=== PATIENT | male | born 1970 | race Caucasian/White ===

== ENCOUNTER 2022-05-30 12:30 | Outpatient (CLI) | payer OTHER, SELFPAY ==
[2022-05-30 18:29] LABS: Basophils Percent Auto 0.5 % (0.2-1.2); Eosinophils Absolute Auto 0.1 K/mm3 (0-0.3); Eosinophils Percent Auto 2.5 % (0-4.4); Hematocrit 48.7 % (42.0-52.0); Hemoglobin 16.2 g/dL (14.0-18.0); Immature Granulocyte Absolute 0.01 K/mm3 (0.00-0.031); Immature Granulocyte Percent A 0.2 % (0-0.5); Lymphocytes Absolute Auto 1.16 K/mm3 (0.9-3.2); Lymphocytes Percent Auto 20.6 % (18.3-44.2); Mean Corpuscular HGB Conc 33.3 g/dl (32-36); Mean Corpuscular Hemoglobin 29.3 pg (26-34); Mean Corpuscular Volume 88.1 fl (80-100); Mean Platelet Volume 10.4 fl (7.4-10.4); Monocytes Absolute Auto 0.6 K/mm3 (0.1-0.6); Monocytes Percent Auto 10.3 % (2.6-8.5); Neutrophils Absolute Auto 3.7 K/mm3 (1.3-6.7); Neutrophils Percent Auto 65.9 % (45.5-73.1); Platelet Count Result 265 k/mm3 (150-375); Red Blood Count 5.53 M/mm3 (4.6-6.20); Red Cell Distribution Width 13.2 % (11.5-14.5); White Blood Count 5.6 K/mm3 (4.5-10.0)
[2022-05-30 18:54] LABS: Alanine Aminotransferase 63 U/L (6-50); Albumin Level 4.7 g/dL (3.5-5.1); Alkaline Phosphatase 61 U/L (38-126); Anion Gap 11 mmol/L (8-16); Aspartate Amino Transferase 64 U/L (17-59); Bilirubin,Total 0.6 mg/dL (0.2-1.3); Blood Urea Nitrogen 12 mg/dL (9-20); Calcium 9.6 mg/dL (8.4-10.2); Carbon Dioxide 25 mmol/L (22-30); Chloride 101 mmol/L (98-107); Cholesterol 152 mg/dL (0-200); Estimated Glomerular Filt Rate > 60; Glucose 80 mg/dL (65-110); HDL Direct 47 mg/dL; Potassium 3.9 mmol/L (3.4-5.0); Sodium 137 mmol/L (137-145); Triglycerides 146 mg/dL (<150)
[2022-05-30 19:04] LABS: LDL Cholesterol Direct 86 mg/dL
[2022-05-30 19:23] LABS: Prostate Specific Antigen 0.7 ng/mL (< OR = 4.0)
[2022-06-01 08:17] LABS: PCP NEGATIVE ng/mL (<25)
[2022-06-08 13:14] LABS: Amphetamines NEGATIVE; Marijuana Metabolites NEGATIVE
[2022-06-08 13:15] LABS: Barbiturates NEGATIVE; Benzodiazepines POSITIVE
[2022-06-08 13:26] LABS: Cocaine Metabolites NEGATIVE
== END 2022-05-30 12:31 | disposition home or self-care (01) ==
LOC: ANHGOSHLAB 12:32
PROVIDERS: PCP Internal Medicine; Visit Provider Nurse Practitioner
DX: E78.2 Mixed hyperlipidemia (principal); F41.9 Anxiety disorder, unspecified; Z12.5 Encounter for screening for malignant neoplasm of prostate; Z13.29 Encounter for screening for other suspected endocrine disorder
CPT/HCPCS: 36415; 80053; 80061; 80307; 84153; 85025; G0103

== ENCOUNTER → 2022-06-11 09:32 | Outpatient (CLI) | payer OTHER, SELFPAY ==
--- NOTE | ~2022-06-11 | US_ITS ---
US scrotum doppler INDICATION: TECHNIQUE: Testicular sonogram utilizing grayscale and color Doppler FINDINGS: The testes are normal in size and appearance. No focal lesions are seen. The right testes measures 4.8 x 2.2 x 3.4 cm centimeters, and the left testis measures 5 x 2.3 x 2.8 cm cm. There is n ormal vascular flow to both testes. There are bilateral epididymal cysts. There is a left varicocele. There are small bilateral hydroceles. IMPRESSION: 1. Left varicocele. 2: Small bilateral hydroceles. 3: Bilateral epididymal cysts. Reviewed, dictated and finalized at location B.
== END ==
PROVIDERS: PCP Nurse Practitioner; Visit Provider Nurse Practitioner
DX: N50.89 Other specified disorders of the male genital organs (principal); I86.1 Scrotal varices; N43.3 Hydrocele, unspecified; N50.3 Cyst of epididymis
CPT/HCPCS: 76870; 93976

== ENCOUNTER 2022-07-23 07:50 | Outpatient (CLI) | payer OTHER, SELFPAY | END 2022-07-23 07:51 | disposition home or self-care (01) | LOC: ANHAUDASC 07:51 | PROVIDERS: PCP Nurse Practitioner; Visit Provider Nurse Practitioner | DX: H93.13 Tinnitus, bilateral (principal); H90.3 Sensorineural hearing loss, bilateral | CPT/HCPCS: 92557; 92567 ==

== ENCOUNTER 2022-12-25 11:24 | Emergency (ER) | payer OTHER, SELFPAY ==
--- NOTE | 2022-12-25 11:29 | ED.URI ---
HPI - URI/Sore Throat General Chief Complaint: Upper Respiratory Infection Stated Complaint: sore throat,sinus pain/drainage,cough Time Seen by Provider: 12/25/22 11:55 Source: patient and RN notes reviewed Mode of arrival: ambulatory Limitations: no limitations History of Present Illness HPI Narrative: 52-year-old male presents with concern for 9 day history of sinus congestion, sinus pain, drainage, cough, chest congestion. Reports he has been taking Mucinex with nighttime relief. Denies fever, aches, chills, sweats MD elicited complaint: cough and nasal congestion Related Data Allergies Allergy/AdvReac Type Severity Reaction Status Date / Time levofloxacin Allergy Unknown Hives Verified 12/25/22 11:33 Review of Systems Review of Systems: CONSTITUTIONAL: Denies malaise, chills, sweats, or fever. EYES: Denies visual changes, redness, or discharge. ENT: Reports rhinorrhea, congestion, sinus pain, and sore throat. CARDIOVASCULAR: Denies chest pain, palpitations, or edema. RESPIRATORY: Reports cough. Denies dyspnea. GASTROINTESTINAL: Denies abdominal pain, nausea, vomiting, diarrhea SKIN: Denies rash or itching. MUSCULOSKELETAL: Denies myalgia. NEUROLOGIC: Denies headache. All systems reviewed & are unremarkable except as noted in HPI and below PMFSH Past Medical History Medical History Anxiety Depression HLD (hyperlipidemia) Hypercholesterolemia Insomnia Surgical History Surgical History History of vasectomy Family History Family History Father Malignant neoplasm of prostate Social History Social History Smoking status: Never smoker Alcohol intake: current Alcohol use details: occasional Substance use: never Lack of Transportation: No Lack of Food: Never True Current Housing: I Have Housing Concerned About Future Housing: No Difficulty Paying Gas/Electric Bills: No Difficulty Paying for Meds: No Currently Unemployed: No Education: Master's Degree or Higher Difficulty w/ Childcare or Family Care: No Comments At time of signature, agree with nursing past medical, surgical, social and family history. There is no relevant family history pertinent to the presenting complaint Exam Narrative: GENERAL: Well-appearing, well-nourished, and in no acute distress. HEAD: Normocephalic EYES: PERRLA, conjunctivae clear ENT: Nares clear, turbinates edematous and erythematous, clear discharge. Mucous membranes moist. TM pearly العلي with dull light reflex bilaterally; no tragal tenderness. Oropharynx not erythematous without lesions. Tonsils not enlarged and without exudate, no drooling, no hoarseness, no trismus, uvula midline. NECK: Supple. No lymphadenopathy CHEST: Clear to auscultation, breath sounds equal. No wheezing, rhonchi, rales, or stridor. No respiratory distress, speaks in full sentences. HEART: Regular rate and rhythm. No murmur heard. SKIN: Warm, dry, no rash. NEURO: Alert and oriented x3. PSYCH: Normal mood and affect Course Course Emergency Course: Patient is aware of diagnosis, understands and agrees to treatment plan. Anticipatory guidance given. Patient agrees to follow-up as directed and is aware of reasons to seek care at the emergency department. Portions of this record may have been created with voice recognition software Level of Care: Express Care Visit Vital Signs Vital signs: Reviewed. MDM - URI/Sore Throat MDM Narrative Medical decision making narrative: Differential diagnosis considered: Ruano virus, strep pharyngitis, allergic rhinitis, upper respiratory tract infection, sinusitis, rhinosinusitis, nasopharyngitis. viral pharyngitis, otitis media, otitis externa, pneumonia, bronchitis, viral cough syndrome, viral syndrome, and influenza. Ex
[2022-12-25 11:34] VITALS: BP 149/89; PULSE 88; RESP 16; TEMP 36.6; O2SAT 99
== END 2022-12-25 12:07 | disposition home or self-care (01) ==
PROVIDERS: Emergency Provider Nurse Practitioner; PCP Internal Medicine
DX: J32.9 Chronic sinusitis, unspecified (principal); J40 Bronchitis, not specified as acute or chronic; E78.5 Hyperlipidemia, unspecified; E78.00 Pure hypercholesterolemia, unspecified; Z98.52 Vasectomy status; F41.9 Anxiety disorder, unspecified; F32.A Depression, unspecified
CPT/HCPCS: 99213; G0463

== ENCOUNTER 2023-05-15 15:08 | Outpatient (NON) | payer OTHER, SELFPAY ==
[2023-05-15 18:51] LABS: Appearance Urine Clear (Clear); Bilirubin Urine Negative (Negative); Blood Urine Negative (Negative); Color Urine Yellow (Yellow); Glucose Urine UA Negative (Negative); Ketones Urine Negative (Negative); Leukocyte Esterase Ur Negative LEU/UL (Negative); Nitrate Urine Negative (Negative); Protein Urine Negative (Negative); Specific Grav Ur 1.012 (1.001-1.035); Urobilinogen Urine 0.2 mg/dL (<2.0); pH Urine 5.5 (5.0-9.0)
[2023-05-15 18:54] LABS: Add Urine Microscopic? NO
== END 2023-05-15 15:09 | disposition home or self-care (01) ==
LOC: ANHGOSHLAB 15:09
PROVIDERS: PCP Internal Medicine; Visit Provider Nurse Practitioner
DX: R39.9 Unspecified symptoms and signs involving the genitourinary system (principal); R30.0 Dysuria
CPT/HCPCS: 81003

== ENCOUNTER 2023-07-23 09:11 | Outpatient (CLI) | payer OTHER, SELFPAY ==
[2023-07-23 19:47] LABS: Basophils Percent Auto 0.8 % (0.2-1.2); Eosinophils Absolute Auto 0.2 K/mm3 (0-0.3); Eosinophils Percent Auto 3.1 % (0-4.4); Hematocrit 47.4 % (42.0-52.0); Hemoglobin 15.6 g/dL (14.0-18.0); Immature Granulocyte Absolute 0.01 K/mm3 (0.00-0.031); Immature Granulocyte Percent A 0.2 % (0-0.5); Lymphocytes Absolute Auto 0.96 K/mm3 (0.9-3.2); Lymphocytes Percent Auto 19.9 % (18.3-44.2); Mean Corpuscular HGB Conc 32.9 g/dl (32-36); Mean Corpuscular Hemoglobin 29.1 pg (26-34); Mean Corpuscular Volume 88.4 fl (80-100); Mean Platelet Volume 10.2 fl (7.4-10.4); Monocytes Absolute Auto 0.5 K/mm3 (0.1-0.6); Monocytes Percent Auto 9.5 % (2.6-8.5); Neutrophils Absolute Auto 3.2 K/mm3 (1.3-6.7); Neutrophils Percent Auto 66.5 % (45.5-73.1); Platelet Count Result 267 k/mm3 (150-375); Red Blood Count 5.36 M/mm3 (4.6-6.20); Red Cell Distribution Width 13.2 % (11.5-14.5); White Blood Count 4.8 K/mm3 (4.5-10.0)
[2023-07-23 19:56] LABS: Alanine Aminotransferase 57 U/L (6-50); Albumin Level 4.5 g/dL (3.5-5.1); Alkaline Phosphatase 51 U/L (38-126); Anion Gap 8 mmol/L (8-16); Aspartate Amino Transferase 40 U/L (17-59); Bilirubin,Total 0.6 mg/dL (0.2-1.3); Blood Urea Nitrogen 15 mg/dL (9-20); Calcium 9.5 mg/dL (8.4-10.2); Carbon Dioxide 24 mmol/L (22-30); Chloride 106 mmol/L (98-107); Cholesterol 178 mg/dL (0-200); Estimated Glomerular Filt Rate > 60; Glucose 105 mg/dL (65-110); HDL Direct 41 mg/dL; Potassium 4.1 mmol/L (3.4-5.0); Sodium 138 mmol/L (137-145); Triglycerides 199 mg/dL (<150)
[2023-07-23 20:12] LABS: LDL Cholesterol Direct 102 mg/dL
[2023-07-23 20:31] LABS: Vitamin D 25 Hydroxy 23.1 ng/mL
[2023-07-23 20:36] LABS: Prostate Specific Antigen 0.9 ng/mL (< OR = 4.0)
[2023-07-25 20:23] LABS: Apolipoprotein B 92 mg/dL (<90)
[2023-07-26 13:33] LABS: Testosterone Free 93.2 pg/mL (35.0-155.0); Testosterone Total 459 ng/dL (250-1100)
== END 2023-07-23 09:12 | disposition home or self-care (01) ==
LOC: ANHGOSHLAB 09:13
PROVIDERS: PCP Internal Medicine; Visit Provider Clinical Nurse Specialist
DX: E78.5 Hyperlipidemia, unspecified (principal); I10 Essential (primary) hypertension; R53.83 Other fatigue; E55.9 Vitamin D deficiency, unspecified; Z12.5 Encounter for screening for malignant neoplasm of prostate; Z13.29 Encounter for screening for other suspected endocrine disorder
CPT/HCPCS: 36415; 80053; 80061; 82172; 82306; 84153; 84402; 84403; 84443; 85025; G0103

== ENCOUNTER 2023-08-09 13:10 | Outpatient (RCR) | payer OTHER, SELFPAY ==
--- NOTE | 2023-08-09 14:36 | PTOPEVAL1 ---
Assessment and note entered by Urszula Johnson, PT, DPT Evaluation Information Assessment Status Evaluation Diagnosis lumbar radiculopathy Onset chronic Subjective Information Pt states he has an annoying pain that runs down the back and side of his L hip down to his knee. He states this has been a nagging pain for the last couple of years. He reports a random numbness or tingling that goes down his leg. He reports recently he feels like he can feel his pulse in the front of his R hip. Pt has a hybrid desk and walking job. Reported Pain Level Pain Score 0: Self Report Assessment PT Clinical Summary Alfredito presents to therapy today for his initial evaluation today with a diagnosis of lumbar radiculopathy. Today he demonstrates tenderness to palpation and muscle tightness in his L piriformis compared to his R. He demonstrates good LE strength and equal pelvic alignment. He was issued an HEP to mobility his piriformis and to improve LE mobility. He would like to try this program on his own for a month and plans to follow up in a month. Plan of Care Interventions Electrical Stimulation,Gait Training,Hot Pack/Cold Pack,Manual Therapy,Neuro Re-education,Patient/ Caregiver Educati,Therapeutic Activities, Therapeutic Exercise PT Services Indicated Yes Treatment Frequency and follow up in 1 month Duration These treatments will address the objective and functional deficits as defined above. The patient will be advanced safely and appropriately in order for the patient to progress towards his/her prior level of function. Additional exercises will be introduced and as well as a comprehensive home exercise program upon discharge, if needed, ?to ensure carryover of functional gains achieved in the clinic. This treatment plan has been reviewed and agreement upon by the patient.
--- NOTE | 2023-09-06 08:36 | PTOPDC ---
Assessment and note entered by Urszula Johnson, PT, DPT Evaluation Information Assessment Status Discharge - Pt Not Presen Diagnosis lumbar radiculopathy Onset chronic Subjective Information Pt did not show up to scheduled re-evaluation this date. Called to follow up. Pt states he forgot but is doing well and does not need to reschedule. Assessment PT Clinical Summary Pt was evaluated on 08/09/23 and did not complete any subsequent treatments.
== END 2023-09-06 08:52 | disposition home or self-care (01) ==
LOC: ANHGOSHPT 13:10
PROVIDERS: PCP Internal Medicine; Visit Provider Clinical Nurse Specialist
DX: M54.16 Radiculopathy, lumbar region (principal)
CPT/HCPCS: 97110; 97161; 99199

== ENCOUNTER 2023-10-17 16:55 | Emergency (ER) | payer OTHER, SELFPAY ==
--- NOTE | 2023-10-17 17:14 | ED.URI ---
HPI - URI/Sore Throat General Chief Complaint: Upper Respiratory Infection Stated Complaint: SORE THROAT/SINUS PRESSURE/FLU A EXPOSURE Source: patient, RN notes reviewed and old records reviewed Mode of arrival: ambulatory Limitations: no limitations History of Present Illness HPI Narrative: 53-year-old male presents to the [facility] with complaints of sore throat, sinus pressure, body aches and exposure to flu a last weekend. Symptoms started when he woke up this morning. No treatment prior to arrival Did not receive his flu shot this year Related Data Allergies Allergy/AdvReac Type Severity Reaction Status Date / Time levofloxacin Allergy Unknown Hives Verified 10/17/23 17:11 Review of Systems Review of Systems: All systems reviewed & are unremarkable except as noted in HPI and below Constitutional: Constitutional: Reports as per HPI and Reports body ache(s) Eyes: Eyes: Reports no additional eye complaints ENT: Reports as per HPI Cardiovascular: Cardiovascular: Reports no additional cardiovascular complaints, Denies chest pain and Denies dyspnea Respiratory: Respiratory: Reports no additional respiratory complaints, Denies chest congestion, Denies cough and Denies dyspnea Gastrointestinal: Gastrointestinal: Reports no additional gastrointestinal complaints, Denies abdominal pain, Denies nausea and Denies vomiting Musculoskeletal: Musculoskeletal: Reports no additional musculoskeletal complaints Integumentary/Breasts: Skin/Breast: Reports system reviewed and no additional complaints, except as docu Neurologic: Reports system reviewed and no additional complaints, except as documented Psychiatric: Psychiatric: Reports no additional psychiatric complaints Allergic/Immunologic: Allergic/Immunologic: Reports no additional allergic/immunologic complaints PMFSH Past Medical History Medical History Anxiety Depression HLD (hyperlipidemia) Hypercholesterolemia Insomnia Surgical History Surgical History History of vasectomy Family History Family History Father Malignant neoplasm of prostate Social History Social History Smoking status: Never smoker Alcohol intake: current Alcohol use details: occasional Substance use: never Substance use type: does not use Lack of Transportation: No Lack of Food: Never True Current Housing: I Have Housing Concerned About Future Housing: No Difficulty Paying Gas/Electric Bills: No Difficulty Paying for Meds: No Currently Unemployed: No Education: Master's Degree or Higher Difficulty w/ Childcare or Family Care: No Living arrangements: alone Occupation/Education: occupation Gender identity (if verbalized by the patient): Male Agree to blood products: Yes Comments At the time of my signature, I reviewed and agree with the nursing past medical, surgical, social, and family history. There is no relevant family history pertinent to the patient complaint. Exam Const: General: cooperative, healthy appearing, comfortable, no acute distress, well developed, alert and well nourished Nutritional Appearance: well nourished Orientation/consciousness: patient oriented x3 Limitations: no limitations HENMT: Head: normal to inspection Ears: hearing grossly normal bilaterally, external ears normal, TM's normal bilaterally, EAC's normal, mastoids normal and no periauricular adenopathy Face/Nose/Sinus: Normal external nose present, Normal nares present, Normal nasal mucous membranes and turbinates present, normal facial exam and face symmetric Face and sinus: normal facial exam and face symmetric Mouth: Yes Normal oral and palatal mucosa present, Yes lip normal and Yes moist mucous membranes Throat: posterior oropharynx normal, tonsils no
[2023-10-17 17:15] VITALS: BP 134/94; PULSE 93; RESP 16; TEMP 36.1; O2SAT 99
== END 2023-10-17 17:39 | disposition home or self-care (01) ==
PROVIDERS: Emergency Provider Nurse Practitioner; PCP Internal Medicine
DX: J11.1 Influenza due to unidentified influenza virus with other respiratory manifestations (principal); Z20.822 Contact with and (suspected) exposure to COVID-19; E78.5 Hyperlipidemia, unspecified; E78.00 Pure hypercholesterolemia, unspecified; Z98.52 Vasectomy status; F41.9 Anxiety disorder, unspecified
CPT/HCPCS: 87426; 87804; 99213; G0463

== ENCOUNTER 2024-03-10 10:28 | Day surgery (SDC) | payer OTHER, SELFPAY ==
[2024-03-04 06:07] VITALS: BMI 30.9
[2024-03-04 12:08] VITALS: BMI 30.7
--- NOTE | 2024-03-09 07:34 | P.PNAN_ITS ---
Anes - Initial Pre Proc Eval Procedure: Operation Date: 03/10/24 13:00 Proposed Procedures p Diagnostic Colonoscopy - David Cohen MD Date/Time: 03/09/24 07:34 Surgeon: David Cohen MD Pre Op Diagnosis: Personal HX of colonic polyps Patient Data Age: 54 Gender: M Height: 1.8 m Weight: 100 kg Allergies Allergy/AdvReac Type Severity Reaction Status Date / Time levofloxacin Allergy Unknown Hives Verified 03/10/24 11:37 Home Medications Medication Instructions Recorded Confirmed Type sildenafil 50 mg tablet 50 mg PO DAILY PRN sexual activity 07/23/23 03/10/24 Rx #30 tabs alprazolam 0.5 mg tablet 0.5 mg PO DAILY PRN anxiety #30 12/09/23 03/10/24 Rx tabs atenolol 25 mg tablet 25 mg PO DAILY #90 tabs 12/26/23 03/10/24 Rx sertraline 50 mg tablet 50 mg PO DAILY #90 tabs 01/27/24 03/10/24 Rx rosuvastatin 20 mg tablet 20 mg PO DAILY #90 tabs 03/02/24 03/10/24 Rx doxepin 10 mg capsule 10 mg PO DAILY 03/10/24 03/10/24 History Patient hx anesthesia problems: none Family hx anesthesia problems: none Results Review: All pre-operative results and documents have been reviewed as part of the pre- operative evaluation. [facility] Past Medical History Medical History (Updated 03/10/24 @ 06:53 by Toñito Austin DO) Anxiety Depression HLD (hyperlipidemia) Hypercholesterolemia Hypertension Insomnia Surgical History Surgical History History of vasectomy Family History Family History Father Malignant neoplasm of prostate Social History Social History Smoking status: Never smoker Alcohol intake: current Drinks per week: 1 Alcohol use details: occasional Substance use: never Substance use type: does not use Do You Feel Safe in your Home?: Yes Lack of Transportation: No Lack of Food: Never True Current Housing: I Have Housing Concerned About Future Housing: No Difficulty Paying Gas/Electric Bills: No Difficulty Paying for Meds: No Currently Unemployed: No Education: Master's Degree or Higher Difficulty w/ Childcare or Family Care: No Living arrangements: alone Occupation/Education: occupation Gender identity (if verbalized by the patient): Male Spiritual care concerns: No Agree to blood products: Yes Anes - Eval Final PreProcedure Day of Procedure 03/09/24 07:34 Patient weight: obese Heart: regular rate and rhythm Lungs: clear to auscultation Airway: Mallampati scale class III Neurological: alert and oriented Last oral intake: >/= 8 hours ASA classification: III Emergent: no Anesthetic plan: proceed Anesthesia type and monitoring: general GIVS and standard monitoring Results Review: All pre-operative results and documents have been reviewed as part of the pre- operative evaluation. Informed Consent: The patient's anesthetic plan and its attendant risks and benefits were discussed with the patient/family/POA. Questions were solicited and answers provided to the satisfaction of the patient/family/POA.
--- NOTE | 2024-03-10 07:17 | P.HP_ITS ---
History of Present Illness History of Present Illness Consent: Risks, benefits, and alternatives have been discussed and questions answered. Patient agrees to proceed with procedure. Chief complaint: Personal HX of colonic polyps Narrative: Alfredito Cage is a 54 year old male Who is referred for colonoscopy. He has a history of having a polyp removed about 9 years ago. Review of Systems Review of Systems: All systems reviewed & are unremarkable except as noted in HPI and below PMFSH Past Medical History Medical History Anxiety Depression HLD (hyperlipidemia) Hypercholesterolemia Hypertension Insomnia Surgical History Surgical History History of vasectomy Family History Family History Father Malignant neoplasm of prostate Social History Social History Smoking status: Never smoker Alcohol intake: current Drinks per week: 1 Alcohol use details: occasional Substance use: never Substance use type: does not use Do You Feel Safe in your Home?: Yes Lack of Transportation: No Lack of Food: Never True Current Housing: I Have Housing Concerned About Future Housing: No Difficulty Paying Gas/Electric Bills: No Difficulty Paying for Meds: No Currently Unemployed: No Education: Master's Degree or Higher Difficulty w/ Childcare or Family Care: No Living arrangements: alone Occupation/Education: occupation Gender identity (if verbalized by the patient): Male Spiritual care concerns: No Agree to blood products: Yes Meds Home Medications and Allergies Home Medications Medication Instructions Recorded Confirmed Type sildenafil 50 mg tablet 50 mg PO DAILY PRN sexual activity 07/23/23 03/10/24 Rx #30 tabs alprazolam 0.5 mg tablet 0.5 mg PO DAILY PRN anxiety #30 12/09/23 03/10/24 Rx tabs atenolol 25 mg tablet 25 mg PO DAILY #90 tabs 12/26/23 03/10/24 Rx sertraline 50 mg tablet 50 mg PO DAILY #90 tabs 01/27/24 03/10/24 Rx rosuvastatin 20 mg tablet 20 mg PO DAILY #90 tabs 03/02/24 03/10/24 Rx doxepin 10 mg capsule 10 mg PO DAILY 03/10/24 03/10/24 History Allergies Allergy/AdvReac Type Severity Reaction Status Date / Time levofloxacin Allergy Unknown Hives Verified 03/10/24 11:37 Exam Resp: Auscultation: clear to auscultation bilaterally Cardio: Rate: regular rate Rhythm: regular rhythm GI: GI Palp: Yes Soft to palpation and No Tenderness to palpation present (GI) Assessment and Plan Assessment and plan (1) Screening for colon cancer: Code(s): Z12.11 - Encounter for screening for malignant neoplasm of colon Status: Acute Assessment and Plan: Colonoscopy with possible biopsy or polypectomy or cautery or injection of subs tances.
[2024-03-10 11:38] VITALS: BP 131/83; PULSE 78; RESP 18; TEMP 36.4; O2SAT 97
[2024-03-10] MEDS: LACTATED RINGERS 1,000 ML 150 ML IV CONT (11:44)
[2024-03-10] MEDS: SIMETHICONE ORAL SUSPENSION 20 MG/0.3 ML 30 ML BOTTLE 0.6 ML IRRIGATION (13:09)
[2024-03-10 13:15] VITALS: BP 89/55; PULSE 68; RESP 16; O2SAT 93
[2024-03-10 13:25] VITALS: BP 96/66; PULSE 67; RESP 16; O2SAT 97
[2024-03-10 13:35] VITALS: BP 108/72; PULSE 70; RESP 18; O2SAT 96
--- NOTE | 2024-03-10 13:44 | WPDANESPN ---
Anes - Prog Note Post-Op Date/Time: 03/10/24 13:44 Cardiovascular status: normal Respiratory status: normal Airway patency: baseline Mental status: baseline Post-Op hydration status: normal Vital Signs: Last Vital Signs Temp 36.4 C 03/10/24 11:38 Pulse 78 03/10/24 11:38 Resp 18 03/10/24 11:38 BP 131/83 03/10/24 11:38 Pulse Ox 97 03/10/24 11:38 O2 Del Method Room Air 03/10/24 11:38 Pain Score (VAS): 0 I/O: Intake & Output 03/09/24 03/10/24 03/10/24 23:59 07:59 15:59 Intake Total 400 Balance 400 Post-procedural complaints: none Patient Feedback: Patient satisfied with anesthetic care. Other Findings: Patient vital signs back to baseline. Patient denies nausea and vomiting. Patient's pain under control. Patient OK for discharge.
== END 2024-03-10 14:03 | disposition home or self-care (01) ==
PROVIDERS: PCP Internal Medicine; Visit Provider Internal Medicine Gastroenterology
PROC: 0DJD8ZZ Inspection of Lower Intestinal Tract, Via Natural or Artificial Opening Endoscopic (ICD-10-PCS; CPT 45378; principal; 2024-03-10 13:00)
DX: Z12.11 Encounter for screening for malignant neoplasm of colon (principal); Z86.010 Personal history of colon polyps
CPT/HCPCS: 45378

== ENCOUNTER 2024-05-23 11:19 | Emergency (ER) | payer OTHER, SELFPAY ==
--- NOTE | 2024-05-23 12:14 | ED.URI ---
HPI - URI/Sore Throat General Chief Complaint: Upper Respiratory Infection Stated Complaint: COUGH/CHEST CONGESTION/HEADACHE/SINUS PRESSURE Time Seen by Provider: 05/23/24 12:14 Source: patient, RN notes reviewed and old records reviewed Mode of arrival: ambulatory Limitations: no limitations History of Present Illness HPI Narrative: 54-year-old male presents to the [facility] with cough, congestion, headaches, sinus pressure that started 1 week ago. States that his symptoms got much worse today Was seen, Medrol Dosepak called in on May 17 Denies any other treatment prior to arrival Related Data Home Medications Medication Instructions Recorded Confirmed doxepin 10 mg capsule 10 mg PO QHS PRN Anxiety 04/08/24 05/23/24 Allergies Allergy/AdvReac Type Severity Reaction Status Date / Time levofloxacin Allergy Unknown Hives Verified 05/23/24 11:45 Review of Systems Review of Systems: All systems reviewed & are unremarkable except as noted in HPI and below Constitutional: Constitutional: Reports no additional constitutional complaints Eyes: Eyes: Reports no additional eye complaints ENT: Reports as per HPI Cardiovascular: Cardiovascular: Reports no additional cardiovascular complaints, Denies chest pain and Denies dyspnea Respiratory: Respiratory: Reports as per HPI, Denies chest congestion, Reports cough and Denies dyspnea Gastrointestinal: Gastrointestinal: Reports no additional gastrointestinal complaints, Denies abdominal pain, Denies nausea and Denies vomiting Musculoskeletal: Musculoskeletal: Reports no additional musculoskeletal complaints Integumentary/Breasts: Skin/Breast: Reports system reviewed and no additional complaints, except as docu Neurologic: Reports system reviewed and no additional complaints, except as documented Psychiatric: Psychiatric: Reports no additional psychiatric complaints Allergic/Immunologic: Allergic/Immunologic: Reports no additional allergic/immunologic complaints [facility] Past Medical History Medical History Anxiety Depression HLD (hyperlipidemia) Hypercholesterolemia Hypertension Insomnia Surgical History Surgical History History of vasectomy Family History Family History Father Malignant neoplasm of prostate Social History Social History Smoking status: Never smoker Alcohol intake: current Drinks per week: 1 Alcohol use details: occasional Substance use: never Substance use type: does not use Do You Feel Safe in your Home?: Yes Lack of Transportation: No Lack of Food: Never True Current Housing: I Have Housing Concerned About Future Housing: No Difficulty Paying Gas/Electric Bills: No Difficulty Paying for Meds: No Currently Unemployed: No Education: Master's Degree or Higher Difficulty w/ Childcare or Family Care: No Living arrangements: alone Occupation/Education: occupation Gender identity (if verbalized by the patient): Male Spiritual care concerns: No Agree to blood products: Yes Comments At the time of my signature, I reviewed and agree with the nursing past medical, surgical, social, and family history. There is no relevant family history pertinent to the patient complaint. Exam Const: General: cooperative, healthy appearing, comfortable, no acute distress, well developed, alert and well nourished Nutritional Appearance: well nourished Orientation/consciousness: patient oriented x3 Limitations: no limitations HENMT: Head: normal to inspection Ears: hearing grossly normal bilaterally, external ears normal, TM's normal bilaterally, EAC's normal, mastoids normal and no periauricular adenopathy Face/Nose/Sinus: Normal external nose present, Normal nares present, Normal nasal mucous mem
[2024-05-23 12:33] VITALS: BP 120/85; PULSE 81; RESP 16; TEMP 36.1; O2SAT 99
== END 2024-05-23 12:37 | disposition home or self-care (01) ==
PROVIDERS: Emergency Provider Nurse Practitioner; PCP Internal Medicine
DX: J40 Bronchitis, not specified as acute or chronic (principal); E78.5 Hyperlipidemia, unspecified; E78.00 Pure hypercholesterolemia, unspecified; I10 Essential (primary) hypertension; F41.9 Anxiety disorder, unspecified; Z98.52 Vasectomy status
CPT/HCPCS: 99213; G0463

== ENCOUNTER 2024-12-01 07:54 | Outpatient (CLI) | payer OTHER, SELFPAY ==
--- OUTSIDE RECORDS SUMMARY | 2024-12-01 08:02 | XMS_ITS | Clinical Summary ---
Author Organization [facility] Address [address] Attn: Epic Prelude ADT [place] [id number] Care Team Providers Care Director Of Physical Security Name Role Phone Unavailable Primary Care Provider Unavailabl e Medications tamsulosin (FLOMAX) 0.4 mg capsule Take 1 Capsule (0.4 mg) by mouth daily at bedtime. 14 Capsule 05/30/2022 1:17 PM CDT 2 Active ALPRAZolam (XANAX) 0.5 mg tablet Take 1 Tablet (0.5 mg) by mouth 1 time daily as needed for anxiety, 30 Tablet 1 2 Active methylPREDNISol one (MEDROL DOSPACK) 4 mg Tablets, Dose Pack Use as directed 21 Each 12/25/2022 12:54 PM CDT 3 Active ALPRAZolam (XANAX) 0.5 mg tablet Take 1 Tablet (0.5 mg) by mouth 1 time daily as needed for anxiety 30 Tablet 1 05/01/2023 5:26 PM CDT 3 Active sulfamethoxazol e-trimethoprim (BACTRIM DS) 800-160 mg tablet Take 1 tablet by mouth every 12 hours 14 Tablet 05/15/2023 3:24 PM CDT 3 Active doxepin (SINEquan) 10 mg capsule TAKE ONE CAPSULE BY MOUTH ONCE DAILY 90 Capsule 1 09/12/2023 4:14 PM UROLOGY SURGEON 3 Active atenoloL (TENORMIN) 25 mg tablet Take one tablet (25 mg) orally daily 90 Tablet 4 Active ALPRAZolam (XANAX) 0.5 mg tablet Take 1 Tablet (0.5 mg) by mouth 1 time daily as needed for anxiety 30 Tablet 1 09/01/2024 5:02 PM UROLOGY SURGEON 4 Active ALPRAZolam (XANAX) 0.5 mg tablet Take 1 tablet by mouth daily as needed for anxiety 30 Tablet 1 10/15/2024 11:26 AM UROLOGY SURGEON 5 Active amoxicillin-cla vulanate (AUGMENTIN) 875-125 mg tablet Take 1 Tablet by mouth 2 times daily for 7 days. 14 Tablet 11/12/2024 6:30 PM UROLOGY SURGEON 5 11/20/19 25 Encounters Date Type Department Care Team Description 11/25/2024 External Device Data [facility] Provider, Abstract 11/24/2024 External Device Data [facility] Provider, Abstract 10/20/2024 External Device Data [facility] Provider, Abstract from Last 3 Months Immunizations Immunization Administration Dates Next Due INFLUENZA VACCINE QUADRIVALENT 6 MOS UP PF IM Social History Tobacco Use Types Packs/Day Years Used Date Smoking Tobacco: Never Assessed Sex and Gender Information Value Date Recorded Sex Assigned at Not on file Legal 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 Gender Identity Not on file Sexual Orientation Not on file Plan of Treatment Health Maintenance Due Date Last Done Comments DTAP/TDAP/TD VACCINES (1 - Tdap) 1990 HEPATITIS B VACCINES (1 of 3 - 19+ 3-dose series) 1990 COLORECTAL SCREENING 01/31/2016 Colorectal Cancer Screening 01/31/2016 FIT-DNA Q 3 years 01/31/2016 FIT/FOBT Q 1 year 01/31/2016 Flex Sig/CT Colonography Q 5 years 01/31/2016 ZOSTER VACCINE (1 of 2) 2021 INFLUENZA VACCINE (#1) 2024 07/01/2022 PNEUMOCOCCAL VACCINE 0-49 YEARS Aged Out No longer eligible based on patient's age to complete this topic Insurance [employer] [facility] Medicare Part B
--- OUTSIDE RECORDS SUMMARY | 2024-12-01 08:02 | XMS_ITS | Data Portability ---
Author Organization [place] - [facility] , [facility] Address [address] [place] [address] Assessment No assessment recorded. Plan of Treatment Reminders Order Date Submit Date Provider Last Modified By Organization Details Last Modified Time Details Appointments None recorded. Lab None recorded. Referral None recorded. Procedures None recorded. Surgeries None recorded. Imaging None recorded. Medication Orders amoxicillin 875 mg-potassiu m clavulanate 125 mg tablet 2024 025 [facility], [address], [place], [place], [id number], 19:08:37 Patient TargetsNo targets recorded. Patient InstructionsNo instructions recorded. Reason for Referral None Reported. Medical Equipment None Reported. Allergies Allergen ID Allergen Name Allergen Category Reaction Reaction Severity Criticality Documentation Date Start Date Code Code System Note Provider Name and Address Organization Details Recorded Time 573191 Levaquin medicatio n Not available Not available Not available 11/12/2024 10614 2 RxNorm Not Available [facility] 18:42:53 Medications Name Sig Start Date Stop Date Status Note LastModified by Organization Details LastModified Time methylpredni solone 4 mg tablets in a dose pack active Not Available Not Available No t Available amoxicillin 875 mg-potassium clavulanate 125 mg tablet Take 1 tablet every 12 hours by oral route. 2024 active Not Available Not Available Not Avai lable UNLISTED MEDICATION [Migrated medication name:] Ruvostatin: : active Not Available Not Available No t Available UNLISTED MEDICATION [Migrated medication name:] Atenolol:: active Not Available Not Available N ot Available UNLISTED MEDICATION [Migrated medication name:] Doxpin:: active Not Available Not Available No t Available UNLISTED MEDICATION [Migrated medication name:] medrol dose pack::4 mg pack active Not Available Not Available No t Available Vitals None Recorded Social History None recorded. Functional Status None recorded. Mental Status None recorded. Family History Nothing Reported. Medical History No medical history recorded. Past Encounters Encounter ID Performer Location Encounter Start Date Encounter Closed Date Diagnosis/Indication Diagnosis SNOMED-CT Code Diagnosis ICD10 Code Diagnosis Note [id number] Summer DILEEP Vanegas [facility] [address] [facility] [place] [address] 11/12/2024 19:03:50 11/12/2024 19:13:58 Acute sinusitis 66478970 J01.90 PLAN: Given patient s presentati on and symptoms, I prescribed augmentin. I advise the pt to use a netipot and a humidifier at night for congestion and stuffiness . Use Tylenol for any pain or fevers. Also using sudafed and mucinex can also help for symptom relief. Pt can try intranasal steroids such as flonase or Nasacort. They can try intranasal spray such as afrin as a decongesta nt. Pt should take vitamins for immune support: 1g Vit. C daily, 50mg Zinc daily and/or Vit. D daily. Health Concerns Section Related Observation LastModified by Organization Detai ls LastModified Time None Recorded Concern Status LastModified by Organization Details LastModified Time None Recorded Advance Directives Directive None Recorded Payers Encounter Date Sequence Insurance Name Policy Number Policy Lau Covered Member ID Lau Member ID Guarantor Name 11/12/2024 1 [facility] [id number] Alfredito Cage [id number] Alfredito Cage 11/12/2024 3 *SELF PAY* [id number] Alfredito Cage [id number] Alfredito Cage Notes Date Note Type Note Provider Name and Address Organization Details Recorded Time 11/12/2024 text/html Call connected, patient greeted, introduced myself as a Nurse Practitioner, identity/location confirmed, telephone number verified, telemedicine limitations reviewed, verbal consent obtained, allergies reviewed, PMH, social hx and family hx reviewed. Prior visits reviewed before visit. Pt is a 54yo M who is c/o green drainage, sinus pressure, teeth and gums or tender, PND. Onset was 12 days ago. He went to a week ago, told him it was viral but tested neg for strep, flu and covid. He works in a school. He denies fever or chills. Denies ear pain, swollen glands, SOB, CP. Baylee Vanegas NP [address] [place] [address] [address], [place], [address], [facility] 11/12/2024 19:09:22
--- OUTSIDE RECORDS SUMMARY | 2024-12-01 08:03 | XMS_ITS | Clinical Summary ---
Author Organization [facility] Address [address] [place] [address] Phone Care Team Providers Care Pool Nurse Name Role Phone Unavailable Primary Care Provider Unavailabl e Social History Tobacco Use Types Packs/Day Years Used Date Smoking Tobacco: Never Assessed Sex and Gender Information Value Date Recorded Sex Assigned at Not on file Legal Sex Male 9:31 PM CDT Gender Identity Not on file Sexual Orientation Not on file Plan of Treatment Not on file
[2024-12-01 15:30] LABS: Hemoglobin A1C 5.8 % (<5.7)
== END 2024-12-01 07:55 | disposition home or self-care (01) ==
LOC: ANHGOSHLAB 07:55
PROVIDERS: PCP Internal Medicine; Visit Provider Internal Medicine
DX: R73.9 Hyperglycemia, unspecified (principal)
CPT/HCPCS: 36415; 83036

== ENCOUNTER 2025-04-06 08:08 | Outpatient (CLI) | payer OTHER, SELFPAY ==
--- OUTSIDE RECORDS SUMMARY | 2025-04-06 08:13 | XMS_ITS | Clinical Summary ---
Author Organization [facility] Address [facility] [place] [address] Care Team Providers Care Straight Line Edger Name Role Phone Marcelo Bañuelos DO Primary Care Provider [phone] Encounters Date Type Department Care Team Description 04/05/2025 8:15 AM CDT Hospital Encounter [facility] [address] [place] [address] Marcelo Bañuelos, Arrived 04/05/2025 Travel from Last 3 Months Social History Tobacco Use Types Packs/Day Years Used Date Smoking Tobacco: Never Assessed Sex and Gender Information Value Date Recorded Sex Assigned at Not on file Legal Sex Male 11:32 AM CDT Gender Identity Not on file Sexual Orientation Not on file Plan of Treatment Health Maintenance Due Date Last Done Comments Colorectal Cancer Screening Colonoscopy (10 Years) 1971 Annual Physical 1974 Hepatitis C 1989 DTaP, Tdap and Td Vaccines (1 - Tdap) 1990 Hepatitis B Vaccines (1 of 3 - 19+ 3-dose series) 1990 Pneumococcal Vaccine: 50+ Years (1 of 1 - PCV) 2021 Zoster Vaccines (1 of 2) 2021 COVID-19 Vaccine ( season) 2024 06/13/2022, 08/15/2021, 11/26/2020, Additional history exists Meningococcal B Vaccine Aged Out No l onger eligible based on patient's age to complete this topic Meningococcal Vaccine Aged Out No berny thang eligible based on patient's age to complete this topic RSV Immunizations Under 20 Months Aged Out No longer eligible based on patient's age to complete this topic Procedures Procedure Name Priority Date/Time Associated Diagnosis Comments CT HEART SCREEN CALCIUM SCORE PROMO Routine 04/05/2025 8:34 AM CDT Mixed hyperlipidemia from Last 3 Months Results * CT HEART SCREEN CALCIUM SCORE PROMO (04/05/2025 8:34 AM CDT) Anatomical Region Laterality Modality Chest Computed Tomogra phy 04/05/2025 10:5 6 AM CDT Impressions 04/05/2025 10:58 AM CDT IMPRESSION: Total Cardiac Calcium Score: 261 Moderate plaque, moderately high risk, moderate likelihood of significant stenosis (>50%). Right middle lobe 2 mm nodule. Per Fleischner guidelines, if the patient is considered high risk for lung cancer (i.e. smoking history), an optional follow- up chest CT chest can be obtained in 12 months. If the patient is considered low risk for lung cancer, no specific follow-up is required. Referred By: MARCELO BAÑUELOS Interpreted By: Fred Magallanes MD, 04/05/2025 10:56 AM Narrative 04/05/2025 10:58 AM CDT [address] [address] EXAMINATION: Multislice Helical CT Coronary Calcium Scoring EXAM DATE/TIME: 04/05/2025 8:18 AM REASON FOR EXAM: MIXED HYPERLIPIDEMIA. COMPARISON: CT heart calcium score 02/06/2024. TECHNIQUE: Multislice helical CT images of the proximal coronary arteries with a computer generated calcification score. Automated exposure control was utilized for dose reduction. FINDINGS: Calcium scoring: Left main: 17.4 LAD: 204 Circumflex: 27 Right coronary: 11.7 Total Score: 261 Extra coronary findings: No suspicious pulmonary nodules or mediastinal adenopathy. 2 mm nodule in the right middle lobe on axial image 18, stable. Calcium score guidelines: Total Score* Calcium Plaque [place] *Risk *Probability of significant CAD 0 No Plaque Very Low Very unlikely 1-10 Minimal Plaque Low Unlikely 11-100 Mild Plaque Moderate Low likelihood of significant stenosis <50% 101-400 Moderate Plaque Moderately High Moderate likelihood of significant stenosis (>50%) Over 400 Extensive Plaque High High likelihood of significant stenosis (>50%) The amount of coronary artery calcification correlates with the severity of coronary atherosclerosis and the probability of future significant event. Calcification is not site specific for stenosis and does not identify non-calcified atherosclerotic plaque, but rather indicates the extent of atherosclerosis in the coronary arteries overall. The score may be used as an indicator for risk factor modification or additional cardiac testing. Significant change in calcium score over time may be indicative of subsequent disease development or useful as a benchmark to assess preventative programs. Procedure Note Fred Magallanes MD - 04/05/2025 [address] [place] [address] EXAMINATION: Multislice Helical CT Coronary Calcium Scoring EXAM DATE/TIME: 04/05/2025 8:18 AM REASON FOR EXAM: MIXED HYPERLIPIDEMIA. COMPARISON: CT heart calcium score 02/06/2024. TECHNIQUE: Multislice helical CT images of the proximal coronary arterieswith a computer generated calcification score. Automated exposure controlwas utilized for dose reduction. FINDINGS: Calcium scoring: Left main: 17.4 LAD: 204 Circumflex: 27 Right coronary: 11.7 Total Score: 261 Extra coronary findings: No suspicious pulmonary nodules or mediastinaladenopathy. 2 mm nodule in the right middle lobe on axial image 18,stable. Calcium score guidelines: Total Score* Calcium Plaque [place] *Risk *Probability ofsignificant CAD 0 No Plaque Very LowVery unlikely 1-10 Minimal Plaque LowUnlikely 11-100 Mild Plaque ModerateLow likelihood of significant stenosis <50% 101-400 Moderate Plaque Moderately HighModerate likelihood of significant stenosis (>50%) Over 400 Extensive Plaque HighHigh likelihood of significant stenosis (>50%) The amount of coronary artery calcification correlates with the severityof coronary atherosclerosis and the probability of future significantevent. Calcification is not site specific for stenosis and does not identify non- calcifiedatherosclerotic plaque, but rather indicates the extent of atherosclerosisin the coronary arteries overall. The score may be used as an indicator for risk factor modification oradditional cardiac testing. Significant change in calcium score over timemay be indicative of subsequent disease development or useful as a benchmark to assess preventativeprograms. IMPRESSION: Total Cardiac Calcium Score: 261 Moderate plaque, moderately high risk, moderate likelihood of significantstenosis (>50%). Right middle lobe 2 mm nodule. Per Fleischner guidelines, if the patientis considered high risk for lung cancer (i.e. smoking history), anoptional follow-up chest CT chest can be obtained in 12 months. If thepatient is considered low risk for lung cancer, no specific follow-up isrequired. Referred By: MARCELO BAÑUELOS Interpreted By: Fred Magallanes MD, 04/05/2025 10:56 AM Marcelo Bañuelos DO CT Final Resul t from Last 3 Months Insurance Care Teams Straight Line Edger Relationship Specialty Start Date End Date Marcelo Bañuelos DO [address] [facility] [address] [place] [address] PCP - General INTERNAL MEDICINE 02/05/24
--- OUTSIDE RECORDS SUMMARY | 2025-04-06 08:13 | XMS_ITS | Clinical Summary ---
Author Organization [facility] Address [address] [place] [address] Phone Care Team Providers Care Senior Infrastructure Engineer Name Role Phone Unavailable Primary Care Provider [...]
--- OUTSIDE RECORDS SUMMARY | 2025-04-06 08:13 | XMS_ITS | Encounter Summary ---
Author Organization [facility] Address [address] [place] [address] Care Team Providers Care Meat Process Worker Name Role Phone Henrique Bañuelos DO Primary Care Provider [phone] Encounter Details Date Type Department Care Team (Latest Contact Info) Description 04/05/2025 Travel Social History Tobacco Use Types Packs/Day Years Used Date Smoking Tobacco: Never Assessed Sex and Gender Information Value Date Recorded Sex Assigned at Not on file Legal Sex Male 11:32 AM CDT Gender Identity Not on file Sexual Orientation Not on file documented as of this encounter Plan of Treatment Not on file documented as of this encounter Visit Diagnoses Not on filedocumented in this encounter Care Teams Meat Process Worker Relationship Specialty Start Date End Date Henrique Bañuelos DO [address] [facility] [address] [place] [address] PCP - General INTERNAL MEDICINE 02/05/24 documented as of this encounter
--- OUTSIDE RECORDS SUMMARY | 2025-04-06 08:13 | XMS_ITS | Encounter Summary ---
Author Organization [facility] Address [address] [place] [address] Care Team Providers Care Enrollment Consultant Name Role Phone Marcelo Bañuelos DO Primary Care Provider [phone] Reason for Referral * Imaging (Routine) - Closed Specialty Diagnoses / Procedures Referred By Contac t Referred To Contact RADIOLOGY Diagnoses Mixed hyperlipidemia Procedures CT HEART SCREEN CALCIUM SCORE Marcelo Puga DO [address] [place] [address] Phone: tel: fax: Referral ID Status Reason Start Date Expiration Date Visits Re quested Visits Authorized [id number] Closed 02/11/2025 02/11/2026 1 1 Reason for Visit * Imaging (Routine) - Closed Specialty Diagnoses / Procedures Referred By Kristi aguero Referred To Contact RADIOLOGY Diagnoses Mixed hyperlipidemia Procedures CT HEART SCREEN CALCIUM SCORE Marcelo Puga DO [address] [place] [address] Phone: tel: fax: Referral ID Status Reason Start Date Expiration Date Visits Re quested Visits Authorized [id number] Closed 02/11/2025 02/11/2026 1 1 Encounter Details Date Type Department Care Team (Late st Contact Info) Description 04/05/2025 8:15 AM CDT Hospital Encounter [facility] [address] [place] [address] Marcelo Bañuelos DO [address] [place] [address] Arrived Social History Tobacco Use Types Packs/Day Years Used Date Smoking Tobacco: Never Assessed Sex and Gender Information Value Date Recorded Sex Assigned at Not on file Legal Sex Male 11:32 AM CDT Gender Identity Not on file Sexual Orientation Not on file documented as of this encounter Plan of Treatment Not on file documented as of this encounter Procedures Procedure Name Priority Date/Time Associated Diagnosis Comments CT HEART SCREEN CALCIUM SCORE PROMO Routine 04/05/2025 8:34 AM CDT Mixed hyperlipidemia documented in this encounter Results * CT HEART SCREEN CALCIUM SCORE [...] 10:56 AM Narrative 04/05/2025 10:58 AM CDT [address] [address] EXAMINATION: Multislice Helical CT Coronary Calcium Scoring [...] Calcium score guidelines: Total Score* Calcium Plaque [place] *Risk *Probability of significant CAD 0 No [...] Procedure Note Fred Magallanes MD - 04/05/[address] [address] EXAMINATION: Multislice Helical CT Coronary Calcium Scoring [...] Calcium score guidelines: Total Score* Calcium Plaque [place] *Risk *Probability ofsignificant CAD 0 No Plaque [...] Marcelo Bañuelos DO CT Final Resul t documented in this encounter Visit Diagnoses Diagnosis Mixed hyperlipidemia documented in this encounter Care Teams Enrollment Consultant Relationship Specialty Start Date End Date Marcelo Bañuelos DO [address] [facility] [address] [place] [address] PCP - General INTERNAL MEDICINE 02/05/24 documented as of this encounter
--- OUTSIDE RECORDS SUMMARY | 2025-04-06 08:13 | XMS_ITS | Data Portability ---
Author Organization [place] - [facility] , [facility] Address [address] [place] [address] Assessment No assessment recorded. Plan of Treatment Reminders Order Date Submit Date Provider Last Modified By Organization Details Last Modified Time Details Appointments None recorded. Lab None recorded. Referral None recorded. Procedures None recorded. Surgeries None recorded. Imaging None recorded. Medication Orders amoxicillin 875 mg-potassiu m clavulanate 125 mg tablet 2024 025 [facility], [address], [place], [place], [id number], 19:08:37 Patient TargetsNo targets recorded. Patient InstructionsNo instructions recorded. Reason for Referral None Reported. Medical Equipment None Reported. Allergies Allergen ID Allergen Name Allergen Category Reaction Reaction Severity Criticality Documentation Date Start Date Code Code System Note Provider Name and Address Organization Details Recorded Time 667639 Levaquin medicatio n Not available Not available Not available 11/12/2024 36256 2 RxNorm Not Available [facility] 18:42:53 Medications Name Sig Start Date Stop Date Status Note LastModified by Organization Details LastModified Time methylpredni solone 4 mg tablets in a dose pack active Not Available Not Available No t Available amoxicillin 875 mg-potassium clavulanate 125 mg tablet Take 1 tablet every 12 hours by oral route. 2024 active Not Available Not Available Not Avai lable UNLISTED MEDICATION [Migrated medication name:] Atenolol:: active Not Available Not Available N ot Available UNLISTED MEDICATION [Migrated medication name:] Ruvostatin: : active Not Available Not Available No t Available UNLISTED MEDICATION [Migrated medication name:] Doxpin:: [...] SNOMED-CT Code Diagnosis ICD10 Code Diagnosis Note [id number] Summer DILEEP Vanegas [facility] [address] [facility] [address] [place] [address] 11/12/2024 19:03:50 11/12/2024 19:13:58 Acute sinusitis [id number] J01.90 PLAN: Given patient s presentati on [...] Recorded Advance Directives Directive None Recorded Payers Insurance Date Sequence Insurance Name Policy Number Policy Lau Covered Member ID Lau Member ID Guarantor Name 11/12/2024 1 *SELF PAY* An ksenia Reinking 11/16/2024 1 [facility] [id number] Alfredito Reinking [id number] Alfredito Reinking 11/12/2024 3 *SELF PAY* [id number] Alfredito Reinking [id number] Alfredito Reinking 11/12/2024 [facility] [id number] Alfredito Reinking [id number] Alfredito Reinking 11/12/2024 2 [facility] [id number] Alfrdeito Reinking [id number] Alfredito Reinking Notes Date Note Type Note Provider Name [...] swollen glands, SOB, CP. Baylee Vanegas NP [address] [facility] [address], [place], [address], [facility] 11/12/2024 19:09:22
--- OUTSIDE RECORDS SUMMARY | 2025-04-06 08:13 | XMS_ITS | Patient Health Record ---
Author Organization [facility] Address [address] [facility] [address] [place] [address] Care Team Providers Care Licensed Clinical Psychologist Name Role Phone Van Rubin Unavailable [phone] Reason For Referral No Information Medications Medication SIG (Take, Route, Fr equency, Duration) Notes Start Date End Date Status Doxepin HCl 10 MG Oral Ac tive ALPRAZolam 0.5 MG Oral Ac tive Sertraline HCl 25 MG Oral Active Simvastatin 20 MG Oral Ac tive Plan Of Treatment No Information Insurance Providers Payer Name Payer Address Payer Phone Subscriber Number Group Number Insured Name Patient Relationship to Insured Coverage Start Date Coverage End Date [facility] [address] [place] [address] [phone] [id number] MAGALIS CAM Self - patient is the insured
[2025-04-06 19:05] LABS: Hematocrit 47.1 % (42.0-52.0); Hemoglobin 15.0 g/dL (14.0-18.0); Immature Granulocyte Percent A 0.2 % (0-0.5); Lymphocytes Absolute Auto 0.90 K/mm3 (0.9-3.2); Mean Corpuscular HGB Conc 31.8 g/dl (32-36); Mean Corpuscular Hemoglobin 29.4 pg (26-34); Mean Corpuscular Volume 92.4 fl (80-100); Nucleated Red Blood Cells Absolute Auto 0.000 K/mm3 (0.0-0.012); Nucleated Red Blood Cells Perc 0.0 % (0.0-0.2); Platelet Count Result 224 k/mm3 (150-375); Red Blood Count 5.10 M/mm3 (4.6-6.20); White Blood Count 4.9 K/mm3 (4.5-10.0)
[2025-04-06 19:21] LABS: Alanine Aminotransferase 50 U/L (6-50); Albumin Level 4.4 g/dL (3.5-5.1); Alkaline Phosphatase 55 U/L (38-126); Anion Gap 9 mmol/L (4-12); Aspartate Amino Transferase 78 U/L (17-59); Bilirubin,Total 0.4 mg/dL (0.2-1.3); Blood Urea Nitrogen 14 mg/dL (9-20); Calcium 9.0 mg/dL (8.4-10.2); Carbon Dioxide 25 mmol/L (22-30); Chloride 104 mmol/L (98-107); Cholesterol 132 mg/dL (0-200); Estimated Glomerular Filt Rate > 60; Glucose 105 mg/dL (65-110); HDL Direct 37 mg/dL; Potassium 4.2 mmol/L (3.4-5.0); Sodium 138 mmol/L (137-145); Total Protein 7.3 g/dL (6.3-8.2); Triglycerides 229 mg/dL (<150)
[2025-04-06 19:59] LABS: Prostate Specific Antigen 0.7 ng/mL (< OR = 4.0)
== END 2025-04-06 08:09 | disposition home or self-care (01) ==
LOC: ANHGOSHLAB 08:09
PROVIDERS: PCP Internal Medicine; Visit Provider Internal Medicine
DX: E78.2 Mixed hyperlipidemia (principal); I10 Essential (primary) hypertension; Z12.5 Encounter for screening for malignant neoplasm of prostate
CPT/HCPCS: 36415; 80053; 80061; 82172; 84153; 85025; G0103